=== PATIENT | female | born 1995 | race Asian ===

== ENCOUNTER 2019-12-07 19:52 | Emergency (ER) | payer OTHER ==
[~2019-12-07] VITALS: Ht 165.1 cm; Wt 90.9 kg
--- NOTE | 2019-12-07 20:18 | NUR ---
PT BIB EMS REPORTS FALL OF ABOUT 3 FEET WHILE ROCK CLIMBING, REPORTS FALLING "WRONG", REPORTS RIGHT KNEE PAIN, SWELLING PRESENT, REPORTS INCREASED PAIN WITH MOVEMENT. EMS REPORTS PT UNABLE TO BEAR WAIT ON RIGHT LEG. PT DENIES OTHER C/O AT THIS TIME. PT PLACED ON MONTIORING, [facility], ALL SAFETY MEASURES IN PLACE.
[2019-12-07 21:14] VITALS: BP 126/82
--- NOTE | 2019-12-07 21:18 | NUR ---
PT RESTING ON CHACE. FAMILY AT FOR SUPPORT. PT PROVIDED WARM BLANKET, DENIES FURTHER NEEDS AT THIS TIME.
== END 2019-12-07 22:36 | disposition home or self-care (01) ==
LOC: ED 22:30
DX: S83.411A Sprain of medial collateral ligament of right knee, initial encounter (principal); M25.361 Other instability, right knee; M25.461 Effusion, right knee; W20.8XXA Other cause of strike by thrown, projected or falling object, initial encounter; Y93.31 Activity, mountain climbing, rock climbing and wall climbing; Y92.328 Other athletic field as the place of occurrence of the external cause; Y99.8 Other external cause status
CPT/HCPCS: 29505; 99283